=== PATIENT | female | born 1945 ===

== ENCOUNTER 2022-09-03 10:21 | Outpatient (CLI) | payer MEDICARE, OTHER | END 2022-09-03 10:22 | disposition home or self-care (01) | LOC: CSHCT 10:21 | PROVIDERS: ATTEND Physician Assistant | DX: R93.89 Abnormal findings on diagnostic imaging of other specified body structures (principal); J90 Pleural effusion, not elsewhere classified; J18.9 Pneumonia, unspecified organism | CPT/HCPCS: 71250 ==